=== PATIENT | female | born 1965 | race African-American/Black ===

== ENCOUNTER 2019-04-16 01:59 | Emergency (ER) | payer OTHER ==
[~2019-04-16] VITALS: Ht 157.5 cm; Wt 70.3 kg
[2019-04-16 02:11] VITALS: BP 141/97
[2019-04-16] MEDS ORDERED: ALBENZA200 MG PO (03:38)
== END 2019-04-16 04:18 | disposition home or self-care (01) ==
LOC: M.ERS 01:59
DX: B80 Enterobiasis (principal); F17.210 Nicotine dependence, cigarettes, uncomplicated; Z91.040 Latex allergy status; Z88.2 Allergy status to sulfonamides; Z88.5 Allergy status to narcotic agent; Z88.1 Allergy status to other antibiotic agents; Z90.49 Acquired absence of other specified parts of digestive tract; Z96.611 Presence of right artificial shoulder joint; Z96.612 Presence of left artificial shoulder joint